=== PATIENT | female | born 1975 | race Caucasian/White ===

== ENCOUNTER 2017-08-01 16:10 | Emergency (ER) | payer OTHER ==
[~2017-08-01] VITALS: Ht 170.2 cm; Wt 91.1 kg
[2017-08-01 16:34] LABS: HEMATOCRIT 36.5 % (36.0-46.0); HEMOGLOBIN 12.2 G/DL (11.9-15.5); MCH 28.4 PG (29.0-34.0); MCHC 33.4 G/DL (30.0-36.0); MCV 84.9 FL (83-99); PLATELET COUNT 188 K/uL (156-360); RBC DIS.WIDTH-CV 14.2 % (11.8-14.6); WHITE BLOOD COUNT 7.8 K/uL (4.1-10.2)
[2017-08-01 16:46] LABS: CHLORIDE 105 mEq/L (99-109); POTASSIUM 3.7 mEq/L (3.7-5.4); SODIUM 141 mEq/L (136-147)
[2017-08-01 16:48] LABS: GLUCOSE 82 mg/dL (70-99)
[2017-08-01 16:52] LABS: CREATININE 0.7 mg/dL (0.6-1.3); GFR ESTIMATE (CALCULATED) > 59 mL/min/
[2017-08-01 16:53] LABS: UREA NITROGEN (BUN) 16 mg/dL (9-23)
[2017-08-01 16:55] LABS: TROP-I INTERPRETATION NEGATIVE; TROPONIN-I < 0.01 ng/mL (0.0-0.30)
[2017-08-01 19:45] LABS: TROP-I INTERPRETATION NEGATIVE; TROPONIN-I < 0.01 ng/mL (0.0-0.30)
[2017-08-01] MEDS ORDERED: ZANTAC300 MG PO (21:01)
[2017-08-01] MEDS ORDERED: CARAFATE100 MG/ML PO (21:01)
[2017-08-01 21:37] VITALS: BP 122/83
== END 2017-08-01 21:39 | disposition home or self-care (01) ==
LOC: EME 16:10
PROVIDERS: Physician Assistant
DX: R07.89 Other chest pain (principal); R10.816 Epigastric abdominal tenderness; I71.2 Thoracic aortic aneurysm, without rupture; I10 Essential (primary) hypertension; I51.7 Cardiomegaly; E28.2 Polycystic ovarian syndrome; Z79.84 Long term (current) use of oral hypoglycemic drugs; Z88.0 Allergy status to penicillin; Z88.8 Allergy status to other drugs, medicaments and biological substances
CPT/HCPCS: 71046; 71275; 74177; 80048; 84484; 85027; 93005; 99281; 99284; J7040